=== PATIENT | female | born 1980 ===

== ENCOUNTER 2017-06-08 05:35 | Outpatient (CLI) | payer OTHER ==
[~2017-06-08] VITALS: Ht 162.6 cm; Wt 63.5 kg
[~2017-06-08 05:35] MED LIST: PREN-98 PO
== END 2017-06-08 12:41 ==
LOC: PREOP 05:35
PROVIDERS: ATTEND Surgery
DX: R19.5 Other fecal abnormalities (principal); Z80.0 Family history of malignant neoplasm of digestive organs

== ENCOUNTER 2017-06-15 08:11 | Day surgery (SDC) | payer BC, OTHER ==
[~2017-06-15] VITALS: Ht 162.6 cm; Wt 63.5 kg
--- OUTSIDE RECORDS SUMMARY | 2017-06-15 08:15 | XMS REPORT ---
Author DEDE Ram Organization [employer] Address Unknown Phone Unavailable Care Team Providers Care [employer] Management Sales Consultant Name Role Phone DEDE STOLL CP Unavailable Allergies, Adverse Reactions, Alerts Substance Reaction Event Type N.K.D.A. Info Not Available Non Drug Allergy Problems Problem Type Condition Code Onset Dates Condition Status Assessment Pharyngitis, unspecified etiology J02.9 Active Medications Medication Code System Code Instructions Start Date End Date Status Dosage PredniSONE [facility] [address]-45 20 mg Orally Once a day November 28, 2015November [address] [facility] [address]-53 500 MG Orally 3 times a day November 28, 2015 December 08, 2015 1 capsule Procedures Procedure Coding System Code Date Office Visit, Est Pt., Level 3 CPT-4 97045 November 28, 2015 Vital Signs Date/Time: November 28, 2015 Cardiac Monitoring Heart Rate 72 bpm Weight 137.4 lbs Height 65 in Blood Pressure Diastolic 76 mmHg Blood Pressure Systolic 130 mmHg Results No Known Results Summary Purpose [employer] Submission
--- OUTSIDE RECORDS SUMMARY | 2017-06-15 08:15 | XMS REPORT | Continuity of Care Document ---
Author Author [facility] Organization [facility] Address Unknown Phone Unavailable Allergies Active Description Code Type Severity Reaction Onset Reported/Identified Relationship to Patient Clinical Status Yes NKANo Known Allergies NKA Miscellaneous Allergy Unknown N/A 07/22/2005 Medications There is no data. Problems Date Dx Coded Attending Type Code Diagnosis Diagnosed By 10/07/2014 JG WELLS MD Ot 648.93 OTH CURR COND-ANTEPARTUM 10/07/2014 JG WELLS MD Ot 782.0 SKIN SENSATION DISTURB 10/07/2014 JG WELLS MD Ot 784.2 SWELLING IN HEAD NECK 10/07/2014 JG WELLS MD Ot 995.3 ALLERGY, UNSPECIFIED 10/07/2014 JG WELLS MD Ot E000.8 OTHER EXTERNAL CAUSE STATUS 10/07/2014 JG WELLS MD Ot E928.8 ACCIDENT NEC 10/07/2014 URSULA PALMER MD Ot 648.93 OTH CURR COND-ANTEPARTUM 10/07/2014 URSULA PALMER MD Ot 989.5 TOXIC EFFECT VENOM 10/07/2014 URSULA PALMER MD Ot E905.3 HORNET/WASP/BEE STING 01/16/2015 CHRISTINE MURRY MD Ot 782.3 01/16/2015 CHRISTINE MURRY MD Ot V58.69 01/16/2015 CHRISTINE MURRY MD Ot V70.0 03/14/2015 CHRISTINE MURRY MD Ot 782.3 03/14/2015 CHRISTINE MURRY MD Ot V58.69 03/14/2015 CHRISTINE MURRY MD Ot V70.0 03/14/2015 CHRISTINE MURRY MD Ot 782.3 03/14/2015 CHRISTINE MURRY MD Ot V58.69 03/14/2015 CHRISTINE MURRY MD Ot V70.0 01/29/2016 CHRISTINE MURRY MD Ot 782.3 EDEMA 01/29/2016 CHRISTINE MURRY MD Ot V58.69 OTH MED,LT,CURRENT USE 01/29/2016 CHRISTINE MURRY MD Ot V70.0 ROUTINE MEDICAL EXAM 05/29/2017 CHRISTINE MURRY MD Ot 782.3 EDEMA 05/29/2017 CHRISTINE MURRY MD Ot V58.69 OTH MED,LT,CURRENT USE 05/29/2017 CHRISTINE MURRY MD Ot V70.0 ROUTINE MEDICAL EXAM 06/08/2017 CHRISTINE MURRY MD Ot 782.3 EDEMA 06/08/2017 CHRISTINE MURRY MD Ot V58.69 OTH MED,LT,CURRENT USE 06/08/2017 CHRISTINE MURRY MD Ot V70.0 ROUTINE MEDICAL EXAM 06/08/2017 JC CISNEROS, SHWETHA Denny Ot R19.5 OTHER FECAL ABNORMALITIES 06/08/2017 SHWETHA GREENE MD Ot Z80.0 FAMILY HISTORY OF MALIGNANT NEOPLASM OF 06/09/2017 SHWETHA GREENE MD Ot R19.5 OTHER FECAL ABNORMALITIES 06/09/2017 SHWETHA GREENE MD Ot Z80.0 FAMILY HISTORY OF MALIGNANT NEOPLASM OF 06/10/2017 CHRISTINE MURRY MD Ot 782.3 EDEMA 06/10/2017 CHRISTINE MURRY MD Ot V58.69 OTH MED,LT,CURRENT USE 06/10/2017 CHRISTINE MURRY MD Ot V70.0 ROUTINE MEDICAL EXAM Procedures There is no data. Results There is no data. Encounters ACCT No. Visit Date/Time Discharge Status Pt. Type Provider Facility Loc./Unit Complaint [id number] 06/08/2017 05:35:00 06/08/2017 12:41:00 DIS Outpatient SHWETHA GREENE MD [facility] PREOP COLONOSCOPY/EGD [id number] 01/11/2015 11:57:00 01/11/2015 23:59:59 CLS Outpatient CHRISTINE MURRY MD [facility] LAB WELLNESS EXAM [id number] 10/07/2014 20:32:00 10/07/2014 21:55:00 DIS Outpatient URSULA PALMER MD [facility] WSo MONITORING AFTER BEE STING [id number] 10/07/2014 19:13:00 10/07/2014 20:25:00 DIS Emergency JG WELLS MD [facility] ER BEE STING;ALLERGIC REACTION [id number] 06/15/2017 08:30:00 PEN Preadmit JC CISNEROS, SHWETHA Denny [facility] ENDO FM HX COLON CA, IRR BM, DARK TARRY STOOLS
[2017-06-15] MEDS ORDERED: NS IV 500 ML 500 ML IV PRN (08:21)
[2017-06-15] MEDS ORDERED: HURRICAINE EXT TUBE (BENZOCAINE) XX PRN (08:30)
[2017-06-15 08:33] VITALS: BP 108/63
--- NOTE | 2017-06-15 09:39 | History & Physicial ---
History of Present Illness History of Present Illness Reason for visit/HPI to undergo an upper endoscopy to investigate epigastric pain and concomitant colonoscopy regarding a family history of colon cancer and to investigate irregular bowel movements. Date of Admission 06/15/17 Date Seen by Provider: Jun 15, 2017 Time Seen by Provider: 09:38 I consulted on this patient on 06/15/17 09:37 Attending Physician Shwetha Greene MD Admitting Physician Chikis Greer MD Consult Allergies and Home Medications Allergies Coded Allergies: NKANo Known Allergies (Verified Allergy, Unknown, 10/23/06) Home Medications No Active Prescriptions or Reported Meds Past Mlfxfro-Pvdiek-Izryjd Hx Patient Social History Alcohol Use: Denies Use Recreational Drug Use: No Smoking Status: Never a Smoker Recent Foreign Travel: No Contact w/other who traveled: No Recent Hopitalizations: No Recent Infectious Disease Expo: No Seasonal Allergies Seasonal Allergies: Yes Surgeries Yes Section Respiratory No Cardiovascular No Neurological No Reproductive System Hx Reproductive Disorders: No Sexually Transmitted Disease: No Gastrointestinal Yes Musculoskeletal No HEENT History of HEENT Disorders: No Cancer No Psychosocial History of Psychiatric Problem: No Family Medical History Significant Family History: Cancer Constitutional: no symptoms reported EENTM: no symptoms reported Cardiovascular: no symptoms reported Gastrointestinal: see HPI Genitourinary: no symptoms reported Musculoskeletal: no symptoms reported Skin: no symptoms reported Psychiatric/Neurological: No Symptoms Reported Physical Exam Vital Signs Vital Sign - Last 12Hours 06/15/17 08:33 Temp 98.9 Pulse 59 Resp 16 B/P (MAP) 108/63 (78) Pulse Ox 100 O2 Delivery Room Air Capillary Refill : General Appearance: No Apparent Distress HEENT: Normal ENT Inspection Neck: Normal Inspection Respiratory: Lungs Clear Cardiovascular: Regular Rate, Rhythm Gastrointestinal: Non Tender, Soft Rectal: Deferred Back: Normal Inspection Extremity: Normal Inspection Neurologic/Psychiatric: Alert, Oriented x3 Skin: Normal Color, Warm/Dry Assessment/Plan Assessment and Plan lady with epigastric pain, change in bowel habits. Melena stools. Family history of colon cancer. For upper endoscopy and colonoscopy Problems: SHWETHA GREENE MD Jun 15, 2017 9:39 am
--- NOTE | 2017-06-15 09:40 | Conscious Sedation/ASA ---
Conscious Sedation Pre-Proced Time Reviewed: 09:40 ASA Class: 2 Airway Mallampati Classification: ([place] appropriate class) I. II. III, IV Lungs Heart ASA score ASA 1: a normal healthy patient ASA 2: a patient with a mild systemic disease (mid diabetes, controlled hypertension, obesity ASA 3: a patient with a severe systemic disease that limits activity (angina , COPD, prior Myocardial infarction) ASA 4: a patient with an incapacitating disease that is a constant threat to life (CHF, renal failure) ASA 5: a moribund patient not expected to survive 24 hrs. (ruptured aneurysm) ASA 6: a declared brain patient whose organs are being harvested. For emergent operations, add the letter E after the classification Grade 1 Sedation Plan: Discussed options with patient/fam Note The patient is an appropriate candidate to undergo the planned procedure, sedation, and anesthesia. The patient immediately re-assessed prior to indication. SHWETHA GREENE MD Jun 15, 2017 9:40 am
[2017-06-15] MEDS ORDERED: fentaNYL INJECTION 100 MCG/2 ML AMP ONE ×2 (09:51)
[2017-06-15] MEDS ORDERED: HURRICAINE EXT TUBE (BENZOCAINE) ONE (09:51)
[2017-06-15] MEDS ORDERED: MIDAZOLAM 2 MG/2 ML (VERSED) VIAL ONE ×4 (09:51)
[2017-06-15] MEDS: fentaNYL INJECTION 100 MCG/2 ML AMP IVP PRN ×2 (10:01→10:04)
[2017-06-15] MEDS: MIDAZOLAM 2 MG/2 ML (VERSED) VIAL IVP PRN ×2 (10:02→10:05)
--- NOTE | 2017-06-15 10:29 | Endo Procedure Record ---
Endo Procedure Report Date of Procedure Last Colonoscopy: No Jun 15, 2017 Surgeon (s) SHWETHA GREENE MD Post Procedure/Op Diagnosis EGD:: Antral ulcers 3. Linear ulcer along the proximal greater curvature Normal colonoscopy Procedure Performed Upper endoscopy with antral biopsy Colonoscopy to cecum Description of Procedure Anesthesia Type: Conscious Sedation Specimen(s) collected/removed antral mucosa for H. pylori Description of the Procedure Indication for the procedures: This lady reported a family history of colon cancer in her father and a change in her bowel habits. In addition, she has ongoing epigastric pain indicative of peptic ulcer disease. Therefore, she came in for an upper endoscopy, with concomitant screening colonoscopy. Informed consent was obtained after reviewing the procedures in detail. Description of the procedures: EGD/antral biopsy:she was placed in left lateral decubitus position and her vital signs were monitored. Conscious sedation was achieved using Versed and fentanyl. The flexible gastroscope was then introduced down the esophagus, past the stomach, into the proximal duodenum. Findings Esophagus: Normal Stomach: 1. A total of 3 active ulcers at the antrum surrounding the pyloric channel, measuring between 2 and 3 mm in diameter. There was erythema around all of them with no contact bleeding. Photo documentation and biopsy for H. pylori were obtained. 2. A linear ulcers about 5 mm long along the proximal greater curvature. Duodenum: Normal She tolerated the procedure well and was turned around in preparation for colonoscopy. Impression: Epigastric pain. Distal gastric ulcers. H. pylori status pending Colonoscopy: Digital rectal examination was unremarkable. The colonoscope was then introduced into the rectum and advanced all the way up to cecum The quality of bowel preparation was excellent. The scope was then withdrawn slowly and the mucosa examined in a systematic fashion. There was no abnormality. She tolerated both procedures well and was taken to the recovery room in a stable condition. Impression: Change in bowel habits and a family history of colon cancer. Normal examination. Recommend screening examination in 5 years. Copies To: YAW DIGGS MD, XAVIER M MD Jun 15, 2017 10:29 am
[2017-06-15] MEDS ORDERED: PANT40TA2 PO (10:30)
--- NOTE | 2017-06-15 10:31 | Discharge Inst-Simple/Standard ---
Discharge Inst-Standard Discharge Medications New, Converted or Re-Newed RX: RX on Chart Patient Instructions/Follow Up Plan of Care/Instructions/FU: Follow-up with Dr. Sharp. Screening colonoscopy in 5 years. To avoid nonsteroidals Activity as Tolerated: Yes Discharge Diet: No Restrictions SHWETHA GREENE MD Jun 15, 2017 10:31 am
[2017-06-15 10:50] VITALS: BP 106/78
[2017-06-15 11:20] VITALS: BP 111/74
[2017-06-15 11:45] VITALS: BP 111/74
== END 2017-06-15 11:50 | disposition home or self-care (01) ==
LOC: ENDO 08:11
PROVIDERS: ATTEND Surgery
DX: K25.9 Gastric ulcer, unspecified as acute or chronic, without hemorrhage or perforation (principal); R19.4 Change in bowel habit; Z80.0 Family history of malignant neoplasm of digestive organs
CPT/HCPCS: 84703

== ENCOUNTER 2021-08-27 17:59 | Emergency (ER) | payer BC, OTHER ==
[~2021-08-27] VITALS: Ht 160 cm; Wt 81.6 kg
[~2021-08-27 17:59] MED LIST changes: +PANT40TA2 PO
--- NOTE | 2021-08-27 18:19 | ED GI ---
General Stated Complaint: BLOODY STOOLS, ABD PAIN Source of Information: Patient History of Present Illness Date Seen by Provider: Aug 27, 2021 Time Seen by Provider: 18:12 Initial Comments PT ARRIVES VIA POV FROM HOME IN [place], [place] C/O LOW ABDOMINAL PAIN AND NO BM SINCE LAST Thursday08/22/21 PASSED A TINY AMOUNT OF BLOOD LAST THURSDAY WHEN SHE WAS STRAINING TO HAVE A BM HAS HAD MILD NAUSEA, NO VOMITING ATE BURRITOS AT NOON NO FEVER NO URINARY SYMPTOMS AND VOIDING A NORMAL AMOUNT PT TOOK MAGNESIUM LAST PM, NO RELIEF OTHERWISE HAS NOT TAKEN ANYTHING ELSE FOR SYMPTOMS STATES SHE WENT TO [facility] YESTERDAY FOR THIS PROBLEM AND HAD LAB AND XRAYS, WAS TOLD SHE WAS FINE. NO RX GIVEN Allergies and Home Medications Allergies Coded Allergies: NKANo Known Allergies (Verified Allergy, Unknown, 10/23/06) Patient Home Medication List Pantoprazole Sodium (Protonix) 40 Mg Tablet.dr, 40 MG PO DAILY Prescribed by: SHWETHA GREENE on 06/15/17 1030 Past Psjopmn-Zwcpdq-Jajzyr Hx Seasonal Allergies Seasonal Allergies: Yes Past Medical History Surgeries: Yes Section Respiratory: No Cardiac: No Neurological: No Reproductive Disorders: No Sexually Transmitted Disease: No Gastrointestinal: Yes Musculoskeletal: No HEENT: No Cancer: No Psychosocial: No Family Medical History Cancer Physical Exam Vital Signs Vital Signs - First Documented 08/27/21 18:15 Temp 36.8 Pulse 98 Resp 16 B/P (MAP) 143/104 (117) O2 Delivery Room Air Capillary Refill : Height/Weight/BMI Height: 5'4.00" Weight: 140lbs. 0.0oz. 63.756895tg; 24.0 BMI Method:Stated Progress/Results/Core Measures Results/Orders Lab Results Laboratory Tests Test 08/27/21 18:20 08/27/21 18:25 Range/Units White Blood Count 9.4 4.3-11.0 10^3/uL Red Blood Count 4.96 3.80-5.11 10^6/uL Hemoglobin 14.0 11.5-16.0 g/dL Hematocrit 43 35-52 % Mean Corpuscular Volume 87 80-99 fL Mean Corpuscular Hemoglobin 28 25-34 pg Mean Corpuscular Hemoglobin Concent 32 32-36 g/dL Red Cell Distribution Width 13.3 10.0-14.5 % Platelet Count 270 130-400 10^3/uL Mean Platelet Volume 10.1 9.0-12.2 fL Immature Granulocyte % (Auto) 1 % Neutrophils (%) (Auto) 63 42-75 % Lymphocytes (%) (Auto) 30 12-44 % Monocytes (%) (Auto) 5 0-12 % Eosinophils (%) (Auto) 1 0-10 % Basophils (%) (Auto) 0 0-10 % Neutrophils # (Auto) 5.9 1.8-7.8 10^3/uL Lymphocytes # (Auto) 2.8 1.0-4.0 10^3/uL Monocytes # (Auto) 0.5 0.0-1.0 10^3/uL Eosinophils # (Auto) 0.1 0.0-0.3 10^3/uL Basophils # (Auto) 0.0 0.0-0.1 10^3/uL Immature Granulocyte # (Auto) 0.1 0.0-0.1 10^3/uL Erythrocyte Sedimentation Rate 17 0-20 MM/HR Sodium Level 139 135-145 MMOL/L Potassium Level 3.4 L 3.6-5.0 MMOL/L Chloride Level 100 98-107 MMOL/L Carbon Dioxide Level 26 21-32 MMOL/L Anion Gap 13 5-14 MMOL/L Blood Urea Nitrogen 11 7-18 MG/DL Creatinine 0.72 0.60-1.30 MG/DL Estimat Glomerular Filtration Rate 108 BUN/Creatinine Ratio 15 Glucose Level 80 70-105 MG/DL Calcium Level 9.7 8.5-10.1 MG/DL Corrected Calcium 8.5-10.1 MG/DL Magnesium Level 2.0 1.6-2.4 MG/DL Total Bilirubin 0.4 0.1-1.0 MG/DL Aspartate Amino Transf (AST/SGOT) 20 5-34 U/L Alanine Aminotransferase (ALT/SGPT) 20 0-55 U/L Alkaline Phosphatase 76 40-136 U/L C-Reactive Protein High Sensitivity 0.32 0.00-0.50 MG/DL Total Protein 7.8 6.4-8.2 GM/DL Albumin 4.6 H 3.2-4.5 GM/DL Amylase Level 66 25-125 U/L Lipase 21 8-78 U/L Urine Color YELLOW Urine Clarity CLEAR Urine pH 7.0 5-9 Urine Specific [place] 1.015 L 1.016-1.022 Urine Protein NEGATIVE NEGATIVE Urine Glucose (UA) NEGATIVE NEGATIVE Urine Ketones 1+ H NEGATIVE Urine Nitrite NEGATIVE NEGATIVE Urine Bilirubin NEGATIVE NEGATIVE Urine Urobilinogen 0.2 < = 1.0 MG/DL Urine Leukocyte Esterase NEGATIVE NEGATIVE Urine RBC (Auto) NEGATIVE NEGATIVE Urine RBC RARE /HPF Urine WBC NONE /HPF Urine Squamous Epithelial Cells 0-2 /HPF Urine Crystals NONE /LPF Urine Bacteria MODERATE H /HPF Urine Casts NONE /LPF Urine Mucus NEGATIVE /LPF Urine Culture Indicated YES My Orders Orders - JEREMIAS MAR DO Ed Iv/Invasive Line Start (08/27/21 18:08) Monitor-Rhythm Ecg Trace Only (08/27/21 18:08) Amylase (08/27/21 18:08) Cbc With Automated Diff (08/27/21 18:08) Comprehensive Metabolic Panel (08/27/21 18:08) Hs C Reactive Protein (08/27/21 18:08) Lipase (08/27/21 18:08) Magnesium (08/27/21 18:08) Ua Culture If Indicated (08/27/21 18:08) Erythrocyte Sedimentation Rate (08/27/21 18:08) Ed Iv/Invasive Line Start (08/27/21 18:40) Lactated Ringers (Lr 1000 Ml Iv Solution (08/27/21 18:45) Ondansetron Injection (Zofran Injectio (08/27/21 18:45) Ketorolac Injection (Toradol Injection) (08/27/21 18:40) Ct Abd/Pelv W (Appendicitis) (08/27/21 18:52) Acute Abd Series (08/27/21 18:52) Iohexol Injection (Omnipaque 350 Mg/Ml 1 (08/27/21 19:00) Received Contrast (Hold Metformin- Contr (08/27/21 19:00) Sodium Chloride Flush (Catheter Flush Sy (08/27/21 19:00) Ns (Ivpb) (Sodium Chloride 0.9% Ivpb Bag (08/27/21 19:00) Urine Culture (08/27/21 18:25) Medications Given in ED Current Medications Medications Dose Ordered Sig/Adalid Route Start Time Stop Time Status Last Admin Dose Admin Iohexol 100 ml ONCE ONCE IV 08/27/21 19:00 08/27/21 19:01 DC 08/27/21 19:19 100 ML Lactated Ringer's 1,000 ml @ 0 mls/hr Q0M ONCE IV 08/27/21 18:45 08/27/21 18:46 DC 08/27/21 18:48 999 MLS/HR Ondansetron HCl 4 mg ONCE ONCE IVP 08/27/21 18:45 08/27/21 18:46 DC 08/27/21 18:48 4 MG Sodium Chloride 10 ml NEEDED PRN IV 08/27/21 19:00 08/27/21 19:19 10 ML Sodium Chloride 100 ml ONCE ONCE IV 08/27/21 19:00 08/27/21 19:01 DC 08/27/21 19:19 80 ML Vital Signs/I&O 08/27/21 18:15 Temp 36.8 Pulse 98 Resp 16 B/P (MAP) 143/104 (117) O2 Delivery Room Air Diagnostic Imaging Comments CT ABDOMEN/PELVIS--PER RADIOLOGIST REPORT AT 1954 FINDINGS: Lung bases are clear. The heart is normal in size. The liver demonstrates no focal lesions. The spleen appears normal. The pancreas is normal. The adrenal glands appear normal. The kidneys demonstrate no abnormal enhancement and no hydronephrosis. The appendix is normal. The bowel loops are nondistended without obstruction. No free air or free fluid is seen. No acute osseous abnormality is seen. IMPRESSION: 1. Normal appendix. No acute abnormality is seen in the abdomen or pelvis. ABDOMEN XRAYS--PER RADIOLOGIST REPORT AT 1953 The heart size is normal. The lungs are clear. No infiltrates are seen. There is no effusion or pneumothorax. No free air is seen. Bowel gas pattern appears nonobstructed. No significant stool load is identified. There is contrast within the renal collecting systems and ureters as well as urinary bladder. IMPRESSION: No acute feature detected. Reviewed: Reviewed by Me Departure Impression Primary Impression: Urinary tract infection Additional Impression: Constipation Disposition: HOME, SELF-CARE Condition: Stable Departure-Patient Inst. Decision time for Depature: 19:55 Referrals: NICHO MOSCOSO MD (PCP) Primary Care Physician Patient Instructions: Constipation, Adult ED, Urinary Tract Infection, Adult (DC) Add. Discharge Instructions: INCREASE YOUR WATER AND FIBER INTAKE TAKE MIRALAX EVERY 1-2 HOURS UNTIL YOU HAVE A BM, THEN USE ONCE A DAY TYLENOL AND MOTRIN NEEDED FOR PAIN FOLLOW UP WITH YOUR DR IN 2-3 DAYS IF NO BETTER Scripts Nitrofurantoin Monohyd/M-Cryst (Macrobid 100 mg Capsule) 100 Mg Capsule 1 TAB PO BID, #20 CAP Prov: JEREMIAS MAR DO 08/27/21 JEREMIAS MAR DO Aug 27, 2021 18:19
[2021-08-27 18:30] LABS: BILIRUBIN,URINE NEGATIVE (NEGATIVE); CLARITY,URINE CLEAR; COLOR,URINE YELLOW; GLUCOSE, URINE (UA) NEGATIVE (NEGATIVE); KETONES,URINE 1+ (NEGATIVE); LEUKOCYTE ESTERASE ,URINE NEGATIVE (NEGATIVE); NITRITE,URINE NEGATIVE (NEGATIVE); PROTEIN,URINE NEGATIVE (NEGATIVE)
[2021-08-27 18:31] LABS: BASOPHILS % (AUTO) 0 % (0-10); EOSINOPHILS # (AUTO) 0.1 10^3/uL (0.0-0.3); EOSINOPHILS % (AUTO) 1 % (0-10); HEMATOCRIT 43 % (35-52); LYMPHOCYTES # (AUTO) 2.8 10^3/uL (1.0-4.0); LYMPHOCYTES % (AUTO) 30 % (12-44); MEAN CORPUSCULAR HEMOGLOBIN 28 pg (25-34); MEAN CORPUSCULAR HGB CONC 32 g/dL (32-36); MEAN CORPUSCULAR VOLUME 87 fL (80-99); MEAN PLATELET VOLUME 10.1 fL (9.0-12.2); MONOCYTES # (AUTO) 0.5 10^3/uL (0.0-1.0); MONOCYTES % (AUTO) 5 % (0-12); NEUTROPHILS # (AUTO) 5.9 10^3/uL (1.8-7.8); NEUTROPHILS % (AUTO) 63 % (42-75); PLATELET COUNT 270 10^3/uL (130-400); WHITE BLOOD COUNT 9.4 10^3/uL (4.3-11.0)
[2021-08-27 18:38] LABS: ALBUMIN 4.6 GM/DL (3.2-4.5); CHLORIDE 100 MMOL/L (98-107); POTASSIUM 3.4 MMOL/L (3.6-5.0); SODIUM 139 MMOL/L (135-145)
[2021-08-27 18:40] LABS: AMYLASE 66 U/L (25-125); CALCIUM 9.7 MG/DL (8.5-10.1)
[2021-08-27] MEDS ORDERED: KETOROLAC 30 MG/ML VIAL IVP STA (18:40)
[2021-08-27 18:41] LABS: GLUCOSE 80 MG/DL (70-105); TOTAL PROTEIN 7.8 GM/DL (6.4-8.2)
[2021-08-27 18:42] LABS: CARBON DIOXIDE 26 MMOL/L (21-32)
[2021-08-27 18:43] LABS: BILIRUBIN,TOTAL 0.4 MG/DL (0.1-1.0)
[2021-08-27 18:44] LABS: ALKALINE PHOSPHATASE 76 U/L (40-136)
[2021-08-27 18:45] LABS: CREATININE SERUM 0.72 MG/DL (0.60-1.30); GFR ESTIMATED 108
[2021-08-27] MEDS ORDERED: LACTATED RINGERS 1,000 ML IV ONE (18:45)
[2021-08-27] MEDS ORDERED: ONDANSETRON 4 MG/2 ML (SDV) Z0FRAN IVP ONE (18:45)
[2021-08-27 18:46] LABS: BUN/CREATININE RATIO 15
[2021-08-27 18:47] LABS: ALANINE AMINOTRANSFERASE 20 U/L (0-55)
[2021-08-27 18:49] LABS: LIPASE 21 U/L (8-78)
[2021-08-27 18:50] LABS: ERYTHROCYTE SEDIMENTATION RATE 17 MM/HR (0-20)
[2021-08-27 18:59] LABS: BACTERIA,URINE MODERATE /HPF; RBC,URINE RARE /HPF; SQUAMOUS EPITHELIAL CELL,UR 0-2 /HPF
[2021-08-27] MEDS ORDERED: HOLD METFORMIN - RECEIVED CONTRAST 20 ML VIAL IV SCH (19:00)
[2021-08-27] MEDS ORDERED: NS 100 ML (IVPB) BAG IV ONE (19:00)
[2021-08-27] MEDS ORDERED: IOHEXOL 350 MG/ML 100 ML (OMNIPAQUE 350) VIAL IV ONE (19:00)
[2021-08-27] MEDS ORDERED: CATHETER FLUSH 10 ML SYR IV PRN (19:00)
--- NOTE | 2021-08-27 19:36 | Diagnostic Imaging Report ---
PROCEDURE: CT abdomen and pelvis with contrast, rule out appendicitis. TECHNIQUE: Multiple contiguous axial images were obtained through the abdomen and pelvis after the administration of intravenous contrast. All CT scans use one or more of the following dose optimizing techniques: automated exposure control, MA and/or KvP adjustment based on patient size and exam type or iterative reconstruction. INDICATION: Right lower quadrant pain COMPARISON: None FINDINGS: Lung bases are clear. The heart is normal in size. The liver demonstrates no focal lesions. The spleen appears normal. The pancreas is normal. The adrenal glands appear normal. The kidneys demonstrate no abnormal enhancement and no hydronephrosis. The appendix is normal. The bowel loops are nondistended without obstruction. No free air or free fluid is seen. No acute osseous abnormality is seen. IMPRESSION: 1. Normal appendix. No acute abnormality is seen in the abdomen or pelvis. Dictated by: Dictated on workstation # [id number]
--- NOTE | 2021-08-27 19:41 | Diagnostic Imaging Report ---
INDICATION: No bowel movement since last , lower abdominal pain. Time of Exam: 7:28 PM The heart size is normal. The lungs are clear. No infiltrates are seen. There is no effusion or pneumothorax. No free air is seen. Bowel gas pattern appears nonobstructed. No significant stool load is identified. There is contrast within the renal collecting systems and ureters as well as urinary bladder. IMPRESSION: No acute feature detected. Dictated by: Dictated on workstation # [id number]
[2021-08-27] MEDS ORDERED: NITR-65 PO (19:58)
[2021-08-27 20:00] VITALS: BP 106/74
== END 2021-08-27 20:04 | disposition home or self-care (01) ==
LOC: EDUNIT# 17:59 → ER 18:08
DX: N39.0 Urinary tract infection, site not specified (principal); K59.00 Constipation, unspecified
CPT/HCPCS: 36415; 74022; 74177; 80053; 81000; 82150; 83690; 83735; 85025; 85652; 86141; 87088; 93041